=== PATIENT | female | born 1985 | race Caucasian/White ===

== ENCOUNTER 2020-04-12 12:29 | Emergency (ER) | payer MEDICAID, SELFPAY ==
[2020-04-12 12:48] VITALS: BP 126/80; PULSE 91; TEMP 36.3; O2SAT 98
[2020-04-12 13:15] LABS: Bilirubin Negative (Negative); Blood Negative (Negative); Clarity Clear (Clear); Glucose Negative (Negative); Ketones Negative (Negative); Leukocyte Esterase Negative (Negative); Nitrite Negative (Negative); Urobilinogen 0.2 EU/dL (Up TO 0.2)
--- NOTE | 2020-04-12 13:15 | DI.CT_ITS ---
EXAM: CT HEAD WO CLINICAL HISTORY: BILLINGS. TECHNIQUE: Imaging Protocol: Axial computed tomography images with coronal and sagittal reformatted images were created and reviewed COMPARISON: No exams were available for comparison FINDINGS: Ventricles and Extra axial spaces: Normal in size and morphology for the patient's age. Hemorrhage: None. Cerebral parenchyma: Normal. Midline shift: None. Brainstem/Cerebellum: Normal. Calvarium: Normal. Visualized Paranasal sinuses/Mastoids: Clear. Soft Tissues: Unremarkable. IMPRESSION: No acute intracranial process. Results of this exam have been verbally communicated with provider. RADIATION DOSE DELIVERED: Total DLP DATA REPOSITORY: All CT scans at this facility are submitted to the National Radiology Data Registry (NRDR) Dose Index Registry (DIR) with the [employer] ([employer]). RADIATION OPTIMIZATION: All CT scans at this facility use at least one of these dose optimization te chniques: automated exposure control; mA and/or kV adjustment per patient size (includes targeted exa ms where dose is matched to clinical indication); or iterative reconstruction.
[2020-04-12] MEDS: Normal Saline 1,000 ML 1000 ML IV (13:26)
[2020-04-12] MEDS: Normal Saline Flush 10 ML SYR IVP ×2 (13:26→15:05)
[2020-04-12] MEDS: Ondansetron 4 MG/2 ML VIAL IVP (13:26)
[2020-04-12 13:33] LABS: Abs Immature Grans 0.01 10^3/uL (0.0-0.06); Absolute Basophil Count 0.03 10^3/uL (0.0-0.2); Absolute Eosinophil Count 0.07 10^3/uL (0.0-0.7); Absolute Lymphocyte Count 1.53 10^3/uL (1.2-3.4); Absolute Monocyte Count 0.48 10^3/uL (0.1-0.8); Absolute Neutrophil Count 4.12 10^3/uL (1.2-6.7); Basophils % 0.5; Eosinophils % 1.1; HCT 41.9 % (36.0-46.0); HGB 14.1 g/dL (11.2-15.7); Immature Grans % 0.2; Lymphocytes % 24.5; MCH 32.3 pg (27.0-33.0); MCHC 33.7 % (32.0-36.0); MCV 95.9 fL (80-95); Monocytes % 7.7; Nucleated RBC 0 %; Platelet Count 264 10^3/uL (130-400); RBC 4.37 10^6/uL (3.93-5.22); WBC 6.24 10^3/uL (4.4-10.8)
[2020-04-12 13:46] LABS: ALT 22 U/L (14-59); AST 16 U/L (15-37); Albumin 4.7 g/dL (3.4-5.0); Alkaline Phosphatase 63 U/L (46-116); BUN 6 mg/dL (7-18); Bilirubin, Total 0.5 mg/dL (0.2-1.0); CREATININE 0.8 mg/dL (0.55-1.02); Calcium 9.5 mg/dL (8.5-10.1); Chloride 103 mmol/L (98-107); Glucose 94 mg/dL (74-106); Potassium 3.9 mmol/L (3.5-5.1); Sodium 139 mmol/L (136-145); Total Protein 8.7 g/dL (6.4-8.2)
[2020-04-12] MEDS: Ketorolac 15 MG/ML VIAL IVP (15:04)
[2020-04-12 15:15] LABS: TSH (W/Ref FT4) 4.77 uIU/mL (0.36-3.74)
[2020-04-12] MEDS: Cyclobenzaprine 10 MG TAB PO (15:28)
[2020-04-12 15:35] LABS: FREE T4 1.26 ng/dL (0.76-1.46)
[2020-04-12 15:41] VITALS: BP 113/55; PULSE 67; RESP 20; TEMP 37.1; O2SAT 100
[2020-04-12 16:03] VITALS: BP 110/60; PULSE 70; RESP 16; TEMP 37.2; O2SAT 97
--- NOTE | 2020-04-13 09:10 | ED.GENADUL_ITS ---
Discharge Plan Disposition Patient Disposition: HOME Condition: Stable Discharge Details Clinical Impression: Left-sided headache, Anxiety about health Primary Care Provider: None,None ED Provider: Shandra Calderon Home Meds and New Rx's Prescriptions: New levothyroxine 75 mcg tablet 75 mcg PO DAILY Qty: 30 RF: 0 cyclobenzaprine 10 mg tablet 10 mg PO TID PRN (Reason: muscle spasm) Qty: 10 RF: 0 No Action levothyroxine [Synthroid] 75 mcg Tablet 75 mcg PO DAILY RF: 0 Discharge Instructions Instructions: Levothyroxine (By mouth), Acute Headache (ED), Anxiety (ED) Additional Instructions: Follow up with primary care provider in 3-5 days. Return to ED sooner if any worsening or concerns. Increase oral fluids. Please take Tylenol or Ibuprofen with food every 4-6 hours as needed for pain and swelling. Try massage, we will place you on a care management list to get established with a primary care provider. Discharge Data Discharge Date/Time-TO BE ENTERED AT DEPARTURE: 04/12/20 16:11 Medical Decision Making 34-year-old female presents to the ED with chief complaint of left-sided temporal headache for the last 4 days. She describes this as sharp, aching and intermittent. Associated with nausea and vomiting today, she states that it gets really worse in the mornings. She has no past medical history of migraines or headaches. She denies any recent trauma or head injuries. She describes being very anxious for Covid she has not taken her levothyroxine for the last 2 months due to recent move from [place], quarantining, and delay in establishing PCP. She denies any fever, she does have left-sided paraspinous muscle pain. 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 She is a non-smoker, she has been taking Tylenol and ibuprofen on and off for the last 4 days with little to no relief. CT head without contrast ordered to rule out intracranial abnormality, labs are largely within normal limits, TSH letter added onto labs due to patient's not taking her levothyroxine and Martine's disorder, urinalysis ordered to rule out and/or UTI. TSH is 4.77 Free T4 is 1.26. EXAM: CT HEAD WO CLINICAL HISTORY: BILLINGS. TECHNIQUE: Imaging Protocol: Axial computed tomography images with coronal and sagittal reformatted images were created and reviewed COMPARISON: No exams were available for comparison FINDINGS: Ventricles and Extra axial spaces: Normal in size and morphology for the patient's age. Hemorrhage: None. Cerebral parenchyma: Normal. Midline shift: None. Brainstem/Cerebellum: Normal. Calvarium: Normal. Visualized Paranasal sinuses/Mastoids: Clear. Soft Tissues: Unremarkable. IMPRESSION: No acute intracranial process. Results of this exam have been verbally communicated with provider. Patient prescribed her levothyroxine 75 mcg, patient was given Flexeril which seems to have her symptoms, prescription given for Flexeril as well. Discussed alternating ice and heat and massage placed on care management list follow-up with PCP and discussed with patient for strict return instructions including increased fever, increasing headache, weakness dizziness, blurry vision. Patient verbalized understanding. She does appear more comfortable prior to discharge discussed alternating ice and heat massage. HPI General Mode of arrival: ambulatory . Date/Time Provider Initiated Documentation: 04/12/20 13:19 . Limitations to Documentation: no limitations . Information obtained by: patient . HPI Narrative: 34-year-old female presents to the ED with chief complaint of left-sided temporal headache for the last 4 days. She describes this as sharp, aching and intermittent. Associated with nausea and vomiting today, she states that it gets really worse in the mornings. She has no past medical history of migraines or headaches. She denies any recent trauma or head injuries. She describes being very anxious for Covid she has not taken her levothyroxine for the last 2 months due to recent move from [place], quarantining, and delay in establishing PCP. She denies any fever, she does have left-sided paraspinous muscle pain. 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 She is a non- smoker, she has been taking Tylenol and ibuprofen on and off for the last 4 days with little to no relief. Related Data Home Medications Medication Instructions Recorded Confirmed cyclobenzaprine 10 mg PO TID PRN #10 tab 04/12/20 levothyroxine 75 mcg PO DAILY #30 tab 04/12/20 levothyroxine [Synthroid] 75 mcg PO DAILY 04/12/20 04/12/20 Previous Rx's Medication Instructions Recorded cyclobenzaprine 10 mg PO TID PRN #10 tab 04/12/20 levothyroxine 75 mcg PO DAILY #30 tab 04/12/20 Allergies Allergy/AdvReac Type Severity Reaction Status Date / Time Penicillins Allergy Unverified 04/12/20 12:56 diphenhydramine AdvReac Unverified 04/12/20 12:56 [From Benadryl] General Stated Complaint: Headache DANNA: 2 Review of Systems Narrative: Constitutional: Negative for weight loss, alert and oriented, well g roomed, very thin body habitus, appears anxious. HEENT: Denies trauma, blurry vision, nasal discharge, sore throat, trouble swallowing. Chest: Denies chest pain, palpitations, irregular rhythm, hypertension. Respiratory: Denies Shortness of breath, cough, hemoptysis. GI: Denies abdominal pain, nausea, vomiting, diarrhea, constipation. : Denies dysuria, hematuria, flank pain, rectal bleeding. Neuro: Denies dizziness, blurry vision, weakness, syncope, headache or facial numbness. Hematologic: Denies easy bruising, intolerance to heat or cold, hair loss. [facility] Social History Smoking/Tobacco Use Status: Never Smoking risk assessment performed?: Yes Alcohol Intake: never Drug use: Never Substance use type: does not use Do you feel safe at home: Yes Do you feel safe in your relationship?: Yes Exam Narrative Exam Narrative: Constitutional: Alert and oriented x3. Appears stated age. Normal body habitus. Head: Normocephalic, no trauma. Eyes: Pupils PERRLA, Red reflex noted, EOM's intact. Eyelids symmetrical without lesions, discharge, or swelling. ENT: Bilateral TM's WNL, External ear normal to inspection, no mastoid TTP, swelling, or erythema, Nasal turbinates WNL, no nasal discharge. Normal dentition, Posterior pharynx WNL, no exudate. Chest: RRR, Normal S1, S2, distal pulses intact. Resp: Lungs clear to auscultation bilaterally, no wheezes, rales, or rhonchi. Musculoskeletal: Normal gait, 5/5 strength to all four extremities. Skin: No suspicious rashes or lesions. Capillary refill less than 2 sec. Neurologic: Cranial nerves II-XII intact. Alert and oriented x 3. DTR's intact. Hematologic/Lymphatic: No ecchymosis, no lymphadenopathy. Course Vital Signs Vital signs: Vital Signs Temperature 36.3 C L 04/12/20 12:48 Pulse 91 H 04/12/20 12:48 Blood Pressure 126/80 04/12/20 12:48 Pulse Oximetry 98 04/12/20 12:48 Temperature 37.2 C 04/12/20 16:03 Temperature Source Temporal Artery Scan 04/12/20 15:41 Pulse 70 04/12/20 16:03 Respiratory Rate 16 04/12/20 16:03 Respiratory Effort Non-Labored 04/12/20 12:54 Blood Pressure 110/60 04/12/20 16:03 Blood Pressure Position Sitting 04/12/20 12:48 Pulse Oximetry 97 04/12/20 16:03 Oxygen Delivery Method Room Air 04/12/20 15:41 Oxygen Flow Rate 0 04/12/20 15:41 Pain Level 2 04/12/20 16:03 Lab/Test Results Lab/Test Results: Laboratory Tests Range/Units 04/12/20 04/12/20 04/12/20 13:05 13:10 13:10 WBC (4.4-10.8) 10^3/uL 6.24 RBC (3.93-5.22) 10^6/uL 4.37 Hgb (11.2-15.7) g/dL 14.1 Hct (36.0-46.0) % 41.9 MCV (80-95) fL 95.9 H MCH (27.0-33.0) pg 32.3 MCHC (32.0-36.0) % 33.7 RDW (11.7-14.6) % 12.0 Plt Count (130-400) 10^3/uL 264 MPV (8.0-11.0) fL 11.0 Immature Gran % 0.2 Neutrophils % 66.0 Lymphocytes % 24.5 Monocytes % 7.7 Eosinophils % 1.1 Basophils % 0.5 Nucleated RBC % % 0 Absolute Neutrophils (1.2-6.7) 10^3/uL 4.12 Absolute Lymphocytes (1.2-3.4) 10^3/uL 1.53 Absolute Monocytes (0.1-0.8) 10^3/uL 0.48 Absolute Eosinophils (0.0-0.7) 10^3/uL 0.07 Absolute Basophils (0.0-0.2) 10^3/uL 0.03 Sodium (136-145) mmol/L 139 Potassium (3.5-5.1) mmol/L 3.9 Chloride (98-107) mmol/L 103 Carbon Dioxide (21.0-32.0) mmol/L 27.0 Anion Gap (3-11) mmol/L 9.0 BUN (7-18) mg/dL 6 L Creatinine (0.55-1.02) mg/dL 0.8 Estimated GFR/1.73 m2 (mL/min/1.73m2) >= 60.00 Glucose (74-106) mg/dL 94 Calcium (8.5-10.1) mg/dL 9.5 Total Bilirubin (0.2-1.0) mg/dL 0.5 AST (15-37) U/L 16 ALT (14-59) U/L 22 Alkaline Phosphatase (46-116) U/L 63 Total Protein (6.4-8.2) g/dL 8.7 H Albumin (3.4-5.0) g/dL 4.7 TSH (0.36-3.74) uIU/mL Free T4 (0.76-1.46) ng/dL Urine Color (Yellow) Yellow Urine Clarity (Clear) Clear Urine pH (5-8) 7.0 Ur Specific [place] (1.005-1.025) 1.010 Urine Protein (Negative) mg/dL Negative Urine Ketones (Negative) mg/dL Negative Urine Blood (Negative) Negative Urine Nitrite (Negative) Negative Urine Bilirubin (Negative) Negative Urine Urobilinogen (Up TO 0.2) EU/dL 0.2 Ur Leukocyte Esterase (Negative) Negative Urine Glucose (Negative) mg/dL Negative Range/Units 04/12/20 13:10 WBC (4.4-10.8) 10^3/uL RBC (3.93-5.22) 10^6/uL Hgb (11.2-15.7) g/dL Hct (36.0-46.0) % MCV (80-95) fL MCH (27.0-33.0) pg MCHC (32.0-36.0) % RDW (11.7-14.6) % Plt Count (130-400) 10^3/uL MPV (8.0-11.0) fL Immature Gran % Neutrophils % Lymphocytes % Monocytes % Eosinophils % Basophils % Nucleated RBC % % Absolute Neutrophils (1.2-6.7) 10^3/uL Absolute Lymphocytes (1.2-3.4) 10^3/uL Absolute Monocytes (0.1-0.8) 10^3/uL Absolute Eosinophils (0.0-0.7) 10^3/uL Absolute Basophils (0.0-0.2) 10^3/uL Sodium (136-145) mmol/L Potassium (3.5-5.1) mmol/L Chloride (98-107) mmol/L Carbon Dioxide (21.0-32.0) mmol/L Anion Gap (3-11) mmol/L BUN (7-18) mg/dL Creatinine (0.55-1.02) mg/dL Estimated GFR/1.73 m2 (mL/min/1.73m2) Glucose (74-106) mg/dL Calcium (8.5-10.1) mg/dL Total Bilirubin (0.2-1.0) mg/dL AST (15-37) U/L ALT (14-59) U/L Alkaline Phosphatase (46-116) U/L Total Protein (6.4-8.2) g/dL Albumin (3.4-5.0) g/dL TSH (0.36-3.74) uIU/mL 4.77 H Free T4 (0.76-1.46) ng/dL 1.26 Urine Color (Yellow) Urine Clarity (Clear) Urine pH (5-8) Ur Specific [place] (1.005-1.025) Urine Protein (Negative) mg/dL Urine Ketones (Negative) mg/dL Urine Blood (Negative) Urine Nitrite (Negative) Urine Bilirubin (Negative) Urine Urobilinogen (Up TO 0.2) EU/dL Ur Leukocyte Esterase (Negative) Urine Glucose (Negative) mg/dL POC- Test(urine) Negative
== END 2020-04-12 16:11 | disposition home or self-care (01) ==
PROVIDERS: Emergency Provider Registered Nurse Emergency
DX: F41.8 Other specified anxiety disorders (principal); R51.9 Headache, unspecified; R11.2 Nausea with vomiting, unspecified; R94.6 Abnormal results of thyroid function studies; T38.1X6A Underdosing of thyroid hormones and substitutes, initial encounter; Z91.138 Patient's unintentional underdosing of medication regimen for other reason; E06.3 Autoimmune thyroiditis
CPT/HCPCS: 36415; 80053; 81025; 96361; 96374; 96375; 99284; 70450; 81003; 84439; 84443; 85025; J1885; J2405

== ENCOUNTER 2020-05-30 09:55 | Outpatient (REF) | payer MEDICAID, SELFPAY ==
[2020-05-30 15:50] LABS: ALT 25 U/L (14-59); AST 19 U/L (15-37); Albumin 4.3 g/dL (3.4-5.0); Alkaline Phosphatase 61 U/L (46-116); Anion Gap 8.6 mmol/L (3-11); BUN 12 mg/dL (7-18); Bilirubin, Total 0.7 mg/dL (0.2-1.0); CO2 27.4 mmol/L (21.0-32.0); CREATININE 0.7 mg/dL (0.55-1.02); Calcium 9.1 mg/dL (8.5-10.1); Chloride 105 mmol/L (98-107); Glucose 89 mg/dL (74-106); Potassium 4.3 mmol/L (3.5-5.1); Sodium 141 mmol/L (136-145); TSH (W/Ref FT4) 4.68 uIU/mL (0.36-3.74); Total Protein 7.9 g/dL (6.4-8.2)
[2020-05-30 16:46] LABS: FREE T4 1.43 ng/dL (0.76-1.46)
== END 2020-05-30 09:56 | disposition home or self-care (01) ==
LOC: NCHCN 09:55
PROVIDERS: Visit Provider Nurse Practitioner
DX: F41.8 Other specified anxiety disorders (principal); E03.9 Hypothyroidism, unspecified
CPT/HCPCS: 80053; 84439; 84443

== ENCOUNTER 2021-07-03 16:46 | Outpatient (REF) | payer MEDICAID, SELFPAY ==
[2021-07-03 14:14] LABS: ESR 2 mm/hr (0-20)
== END 2021-07-03 16:47 | disposition home or self-care (01) ==
LOC: NCHCN 16:46
PROVIDERS: Visit Provider Physician Assistant
DX: R51.9 Headache, unspecified (principal)
CPT/HCPCS: 85652

== ENCOUNTER 2021-11-22 11:30 | Emergency (ER) | payer MEDICAID, SELFPAY ==
--- NOTE | 2021-11-22 11:45 | RT.EKG_ITS ---
APPROVED REPORT Exam: Resting ECG Reason for Exam: Tachycardia Patient Location: E HR:90 bpm ECG Measurements Heart Rate 90 AXIS [place] 130 P 56 QRSd 87 QRS 70 QT 374 T -38 QTc 458 Conclusion Sinus rhythm...normal P axis, V-rate 60- 99
[2021-11-22 12:00] VITALS: BP 115/71; PULSE 90; RESP 32; TEMP 37.1; O2SAT 99
[2021-11-22 12:23] LABS: Abs Immature Grans 0.01 10^3/uL (0.0-0.06); Absolute Basophil Count 0.05 10^3/uL (0.0-0.2); Absolute Eosinophil Count 0.08 10^3/uL (0.0-0.7); Absolute Lymphocyte Count 1.47 10^3/uL (1.2-3.4); Absolute Monocyte Count 0.48 10^3/uL (0.1-0.8); Absolute Neutrophil Count 3.36 10^3/uL (1.2-6.7); Basophils % 0.9; Eosinophils % 1.5; HCT 36.8 % (36.0-46.0); HGB 12.2 g/dL (11.2-15.7); Immature Grans % 0.2; MCH 31.8 pg (27.0-33.0); MCHC 33.2 % (32.0-36.0); MCV 96 fL (80-95); MPV 10.2 fL (8.0-11.0); Monocytes % 8.8; Neutrophils % 61.6; Platelet Count 272 10^3/uL (130-400); RBC 3.84 10^6/uL (3.93-5.22); RDW 12.2 % (11.7-14.6); RDW-SD 42.9 fL; WBC 5.45 10^3/uL (4.4-10.8)
[2021-11-22 12:47] LABS: ALT 20 U/L (14-59); AST 21 U/L (15-37); Albumin 4.2 g/dL (3.4-5.0); Alkaline Phosphatase 65 U/L (46-116); Anion Gap 10.7 mmol/L (3-11); BUN 9 mg/dL (7-18); Bilirubin, Total 0.7 mg/dL (0.2-1.0); CO2 24.3 mmol/L (21.0-32.0); CREATININE 0.9 mg/dL (0.55-1.02); Chloride 104 mmol/L (98-107); Estimated GFR 84.44 (mL/min/1.73m2); Glucose 90 mg/dL (74-106); Magnesium 1.8 mg/dL (1.8-2.4); Potassium 3.7 mmol/L (3.5-5.1); Sodium 139 mmol/L (136-145); TSH (W/Ref FT4) 5.61 uIU/mL (0.36-3.74); Total Protein 8.1 g/dL (6.4-8.2); Troponin I < 50 ng/L (<or=60)
[2021-11-22 13:06] LABS: FREE T4 1.27 ng/dL (0.76-1.46)
[2021-11-22] MEDS: LORazepam 20 MG/10 ML VIAL IVP (13:09)
[2021-11-22] MEDS: Normal Saline 1,000 ML 1000 ML IV (13:09)
--- NOTE | 2021-11-22 13:24 | ED.GENADUL_ITS ---
Discharge Plan Disposition Patient Disposition: HOME Condition: Improving Discharge Details Clinical Impression: Adverse drug reaction Primary Care Provider: None,None ED Provider: Calderon Flores Home Meds and New Rx's Prescriptions: Continued cyclobenzaprine 10 mg tablet 10 mg PO TID PRN (Reason: muscle spasm) Qty: 10 0RF Held levothyroxine [Synthroid] 75 mcg Tablet 75 mcg PO DAILY Hold Instructions: Until you follow-up with your primary care provider levothyroxine 75 mcg tablet 75 mcg PO DAILY Qty: 30 0RF Hold Instructions: Until you follow-up with your primary care provider Discharge Instructions Additional Instructions: At this time please hold your levothyroxine as I feel this may be causing an adverse reaction. You will need to follow-up with your primary care provider for reassessment and may repeat labs before resuming any further thyroid meds. If you develop any new or significant worsening of symptoms feel free to return the emergency department Referrals: Primary Care Provider [Outside] - 1 week Discharge Data Discharge Date/Time-TO BE ENTERED AT DEPARTURE: 11/22/21 13:42 Medical Decision Making Patient presenting to the emergency department for chief complaint of adverse medication reaction. She states starting 1 week ago whenever she takes her thyroid medication within a couple hours she becomes shaky, rapid heart rate, and has had some diarrhea. Then when she skips her medication she does not have any symptoms. She has taken her meds for the past 2 days and today noted significant increase worsening of symptoms. Physical exam is unremarkable, no worrisome palpable thyroid nodules that I can appreciate, clear lung sounds, normal cardiac exam. Patient does appear slightly anxious. We will plan on checking labs, giving fluids, and antiemetics pending results Review of labs show an overall unremarkable CBC, CMP, negative troponin, EKG shows upper limits of normal sinus rhythm but otherwise nondiagnostic with no acute STEMI noted. TSH is elevated at 5.61 but free T4 is 1.27. Given that patient has symptoms whenever she takes her medication I recommended that she holds her medication and follow-up with primary care provider in the next week to further discuss this. Patient does state that she was only started on the medication when she was which was over 4 years ago. Patient does state overall improvement of symptoms and so I do feel that discharge disposition is safe and see no evidence of endocrine emergency. After discussion of diagnosis and plan of care patient has no further needs, questions, or concerns and states clear understanding to return to the emergency department for any worsening symptoms. This documentation was generated using [employer] dictation system, please disregard any oddities of phrase or misspellings. Lab Data Lab results reviewed: Yes I reviewed the patient's lab results. HPI General Mode of arrival: ambulatory . Date/Time Provider Initiated Documentation: 11/22/21 11:36 . Limitations to Documentation: no limitations . Information obtained by: patient and RN notes reviewed . History of Present Illness 36 year old F presents to the emergency department with the chief complaint of Medication reaction, described as moderate, Quality is described as other (Denies pain), Patient started experiencing this week(s) (1) and it has been intermittent. No relieving factors improve symptom(s), Medication worsens symptoms . Patient notes malaise; denies fever/chills. Patient did receive the following treatments prior to arrival, none Related Data Home Medications Medication Instructions Recorded Confirmed cyclobenzaprine 10 mg tablet 10 mg PO TID PRN muscle spasm #10 04/12/20 tabs levothyroxine 75 mcg tablet 75 mcg PO DAILY #30 tabs 04/12/20 levothyroxine 75 mcg tablet 75 mcg PO DAILY 04/12/20 04/12/20 (Synthroid) Previous Rx's Medication Instructions Recorded cyclobenzaprine 10 mg tablet 10 mg PO TID PRN muscle spasm #10 04/12/20 tabs levothyroxine 75 mcg tablet 75 mcg PO DAILY #30 tabs 04/12/20 Allergies Allergy/AdvReac Type Severity Reaction Status Date / Time Penicillins Allergy Unverified 04/12/20 12:56 diphenhydramine AdvReac Unverified 04/12/20 12:56 [From Benadryl] General Stated Complaint: GenMedical DANNA: 3 Review of Systems Constitutional Constitutional: Denies chills, Denies fever(s), Reports headache(s) and Reports malaise Eyes Eyes: Denies change in vision ENT Ears, Nose, Mouth, and Throat: Reports headache(s), Denies lip swelling, Denies neck pain, Denies throat swelling and Denies tongue swelling Cardiovascular Cardiovascular: Reports chest pain, Denies syncope, Reports palpitations and Denies dyspnea Respiratory Respiratory: Denies dyspnea Gastrointestinal Gastrointestinal: Denies abdominal pain, Reports diarrhea, Denies nausea and Denies vomiting Musculoskeletal Musculoskeletal: Reports muscle cramps, Denies neck pain, Denies numbness and Denies tingling Integumentary/Breasts Skin/Breast: Denies rash and Denies unusual bruising Neurologic Neurologic: Denies confusion, Denies syncope, Reports headache(s), Denies numbness and Denies tingling Psychiatric Psychiatric: Reports anxiety and Denies confusion Endocrine Endocrine: Reports palpitations Hematologic/Lymphatic Hematologic/Lymphatic: Denies easy bruising Allergic/Immunologic Allergic/Immunologic: Denies lip swelling, Denies throat swelling and Denies tongue swelling PFSH All Active Problems (Updated 11/23/21 @ 09:58 by Calderon Flores NP) Panic attacks (Acute) Hypothyroidism (Chronic) Adverse drug reaction (Acute) Social History Smoking/Tobacco Use Status: Never Smoking risk assessment performed?: Yes Alcohol Intake: never Drug use: Never Substance use type: does not use Do you feel safe at home: Yes Do you feel safe in your relationship?: Yes Exam Const General: cooperative, healthy appearing, comfortable, no acute distress, not diaphoretic and not ill appearing Nutritional Appearance: average body habitus Orientation: alert, awake and oriented x3 Limitations: mental status not altered Neck Neck: normal visual inspection, full ROM, trachea midline, supple and no anterior neck swelling Thyroid: thyroid normal Carotids: normal carotid upstroke and no bruits Chest Chest: normal inspection of the chest Resp Effort & Inspection: normal respiratory effort and able to speak in complete sentences Auscultation: clear to auscultation bilaterally Cardio Jugular venous pressure: no JVD Palpation: normal PMI Rate: regular rate Rhythm: regular rhythm Heart Sounds: S1 normal, S2 normal, no click, no gallops, no murmurs and no rubs Bruits: no abdominal aortic bruits and no carotid bruits Pulses: radial pulses present bilaterally 2+ Skin General skin exam: no rashes or lesions noted Neuro General: patient alert, patient awake, patient oriented x3, tone normal and moves all extremities Course Vital Signs Vital signs: Vital Signs Temperature 37.1 C 11/22/21 12:00 Pulse 90 11/22/21 12:00 Respiratory Rate 32 H 11/22/21 12:00 Blood Pressure 115/71 11/22/21 12:00 Pulse Oximetry 99 11/22/21 12:00 Temperature 37.1 C 11/22/21 12:00 Temperature Source Temporal Artery Scan 11/22/21 12:00 Pulse 90 11/22/21 12:00 Respiratory Rate 32 H 11/22/21 12:00 Blood Pressure 115/71 11/22/21 12:00 Blood Pressure Position Sitting 11/22/21 12:00 Pulse Oximetry 99 11/22/21 12:00 Oxygen Delivery Method Room Air 11/22/21 12:00 Oxygen Flow Rate 0 11/22/21 12:00 Pain Level 0 11/22/21 12:00 Lab/Test Results Lab/Test Results: Laboratory Tests Range/Units 11/22/21 11/22/21 12:20 12:20 WBC (4.4-10.8) 10^3/uL 5.45 RBC (3.93-5.22) 10^6/uL 3.84 L Hgb (11.2-15.7) g/dL 12.2 Hct (36.0-46.0) % 36.8 MCV (80-95) fL 96 H MCH (27.0-33.0) pg 31.8 MCHC (32.0-36.0) % 33.2 RDW (11.7-14.6) % 12.2 Plt Count (130-400) 10^3/uL 272 MPV (8.0-11.0) fL 10.2 Immature Gran % 0.2 Neutrophils % 61.6 Lymphocytes % 27.0 Monocytes % 8.8 Eosinophils % 1.5 Basophils % 0.9 Nucleated RBC % (0.0-0.3) % 0.0 Absolute Neutrophils (1.2-6.7) 10^3/uL 3.36 Absolute Lymphocytes (1.2-3.4) 10^3/uL 1.47 Absolute Monocytes (0.1-0.8) 10^3/uL 0.48 Absolute Eosinophils (0.0-0.7) 10^3/uL 0.08 Absolute Basophils (0.0-0.2) 10^3/uL 0.05 Sodium (136-145) mmol/L 139 Potassium (3.5-5.1) mmol/L 3.7 Chloride (98-107) mmol/L 104 Carbon Dioxide (21.0-32.0) mmol/L 24.3 Anion Gap (3-11) mmol/L 10.7 BUN (7-18) mg/dL 9 Creatinine (0.55-1.02) mg/dL 0.9 Est GFR (CKD-EPI 2020) (mL/min/1.73m2) 84.44 Glucose (74-106) mg/dL 90 Calcium (8.5-10.1) mg/dL 9.0 Magnesium (1.8-2.4) mg/dL 1.8 Total Bilirubin (0.2-1.0) mg/dL 0.7 AST (15-37) U/L 21 ALT (14-59) U/L 20 Alkaline Phosphatase (46-116) U/L 65 Troponin I (<or=60) ng/L < 50 Total Protein (6.4-8.2) g/dL 8.1 Albumin (3.4-5.0) g/dL 4.2 TSH (0.36-3.74) uIU/mL 5.61 H Free T4 (0.76-1.46) ng/dL 1.27
== END 2021-11-22 13:42 | disposition home or self-care (01) ==
PROVIDERS: Emergency Provider Nurse Practitioner Family; PCP Nurse Practitioner Family
DX: R00.0 Tachycardia, unspecified (principal); T38.1X5A Adverse effect of thyroid hormones and substitutes, initial encounter; R19.7 Diarrhea, unspecified; E03.9 Hypothyroidism, unspecified
CPT/HCPCS: 80053; 93005; 96361; 96372; 99284; 83735; 84439; 84443; 84484; 85025; 93010; J3490

== ENCOUNTER 2022-01-19 15:02 | Outpatient (REF) | payer MEDICAID, SELFPAY ==
[2022-01-19 15:44] LABS: TSH (W/Ref FT4) 6.33 uIU/mL (0.36-3.74)
[2022-01-19 16:01] LABS: FREE T4 1.05 ng/dL (0.76-1.46)
== END 2022-01-19 15:03 | disposition home or self-care (01) ==
LOC: NCHCN 15:02
PROVIDERS: PCP Nurse Practitioner Family; Visit Provider Nurse Practitioner Family
DX: E03.9 Hypothyroidism, unspecified (principal)
CPT/HCPCS: 84439; 84443

== ENCOUNTER 2022-07-05 12:28 | Outpatient (REF) | payer MEDICAID, SELFPAY ==
[2022-07-05 17:01] LABS: TSH (W/Ref FT4) 10.41 uIU/mL (0.36-3.74)
[2022-07-05 18:23] LABS: FREE T4 0.96 ng/dL (0.76-1.46)
== END 2022-07-05 12:29 | disposition home or self-care (01) ==
LOC: NCHCN 12:28
PROVIDERS: PCP Nurse Practitioner Family; Visit Provider Nurse Practitioner Family
DX: E03.9 Hypothyroidism, unspecified (principal)
CPT/HCPCS: 84439; 84443

== ENCOUNTER 2022-08-05 00:27 | Emergency (ER) | payer MEDICAID, SELFPAY ==
[2022-08-05] VITALS (7 sets, daily range): BP systolic 105–113; BP diastolic 62–65; PULSE 66–76; RESP 16–18; O2SAT 97–100
--- NOTE | 2022-08-05 00:41 | ED.GENADUL_ITS ---
Discharge Plan Disposition Patient Disposition: Home Condition: Stable Discharge Details Clinical Impression: Nausea & vomiting Primary Care Provider: Daja Arciniega ED Provider: Ramiro Horne Home Meds and New Rx's Prescriptions: New ondansetron 4 mg tablet,disintegrating 4 mg PO Q8H PRN (Reason: nausea and vomiting) Qty: 30 0RF Discharge Instructions Instructions: Acute Nausea and Vomiting (ED) Additional Instructions: it is likely you have a food related illness that will improve over the course of the day if not improving this week follow up with your primary care provider if you feel more ill, have severe abdominal pain or new symptoms such as chest pain or dyspnea return to the emergency department Medical Decision Making 36 yo female who denies chronic medical problems comes in with cc of n/v. She states she was in her usual state of health throughout the day, went out for dinner and ate tuna. Shortly after getting home she started to have nausea and then started to vomit multiple times. She denies abdominal pain, chest pain, dyspnea, fevers, chills. She drinks socially, denies drug use. She arrives hemodynamically stable, speaking clearly caox4. She has clear lungs, no murmurs, soft nontender abdomen. Given the history of eating fish and then having the profuse n/v suspect food related illness, lack of abdominal tenderness makes surgical pathology such as sbo unlikely. Will proceed with iv fluids, zofran, check basic labs including cbc, cmp, lipase and reassess. Do not feel imaging indicated given reassuring abdominal exam. pt stable, still has nausea but states has improved. Labs show wbc of 15 likely reactive, still has no abdominal pain and no tenderness on exam, suspect food related illness, stable for d/c, advised to f/u with pcp, return precautions given Differential Diagnosis Differential Diagnosis: food illness, gastroenteritis Lab Data Lab results reviewed: Yes I reviewed the patient's lab results. HPI General Date/Time Provider Initiated Documentation: 08/05/22 00:27 . Limitations to Documentation: no limitations . Information obtained by: patient . History of Present Illness 36 year old F presents to the emergency department with the chief complaint of n/v, Patient started experiencing this hour(s) (3) and it has been intermittent. No relieving factors improve symptom(s), No exacerbating factors reported . Patient notes no other symptoms.. Patient did receive the following treatments prior to arrival, none Related Data Home Medications Medication Instructions Recorded Confirmed ondansetron 4 mg disintegrating 4 mg PO Q8H PRN nausea and 08/05/22 tablet vomiting #30 tabs Previous Rx's Medication Instructions Recorded ondansetron 4 mg disintegrating 4 mg PO Q8H PRN nausea and 08/05/22 tablet vomiting #30 tabs Allergies Allergy/AdvReac Type Severity Reaction Status Date / Time Penicillins Allergy Unverified 08/05/22 00:36 diphenhydramine AdvReac Unverified 08/05/22 00:36 [From Benadryl] General Stated Complaint: Nausea/Vomit/Diar DANNA: 3 Review of Systems All systems reviewed & are unremarkable except as noted in HPI and below Constitutional Constitutional: Denies chills and Denies fever(s) Cardiovascular Cardiovascular: Denies chest pain and Denies dyspnea Respiratory Respiratory: Denies cough and Denies dyspnea Gastrointestinal Gastrointestinal: Denies abdominal pain, Reports nausea and Reports vomiting Genitourinary Genitourinary: Denies dysuria Musculoskeletal Musculoskeletal: Denies joint swelling Integumentary/Breasts Skin/Breast: Denies rash PFSH All Active Problems (Updated 08/05/22 @ 01:41 by Ramiro Horne MD) Nausea & vomiting (Acute) Panic attacks (Acute) Hypothyroidism (Chronic) Social History Smoking/Tobacco Use Status: Never Smoking risk assessment performed?: Yes Alcohol Intake: never Drug use: Never Substance use type: marijuana Do you feel safe at home: Yes Do you feel safe in your relationship?: Yes Exam Const General: no acute distress Orientation: alert HENPA Head: normal to inspection Ears: external ears normal General nose exam: external nose normal Mouth: moist mucous membranes Eyes General: appearance normal, both eyes and all related structures Neck Neck: normal visual inspection Resp Effort & Inspection: normal respiratory effort and able to speak in complete sentences Cardio Rate: regular rate GI Palpation: soft and nontender Skin General skin exam: no rashes or lesions noted Neuro General: patient alert and patient oriented x3 Extrem General: normal to inspection Psych Mental Status: mental status grossly normal Course Vital Signs Vital signs: Vital Signs Pulse 76 08/05/22 00:32 Respiratory Rate 16 08/05/22 00:32 Blood Pressure 113/65 08/05/22 00:32 Pulse Oximetry 97 08/05/22 00:32 Pulse 76 08/05/22 00:32 Respiratory Rate 16 08/05/22 00:32 Respiratory Effort Normal 08/05/22 00:32 Blood Pressure 113/65 08/05/22 00:32 Blood Pressure Position Supine 08/05/22 00:32 Pulse Oximetry 97 08/05/22 00:32 Oxygen Delivery Method Room Air 08/05/22 00:32 Oxygen Flow Rate 0 08/05/22 00:32 Pain Level 0 08/05/22 00:32
[2022-08-05] MEDS: Normal Saline 1,000 ML 1000 ML IV (00:50)
[2022-08-05] MEDS: Ondansetron 4 MG/2 ML VIAL IVP (01:00)
[2022-08-05 01:04] LABS: Abs Immature Grans 0.05 10^3/uL (0.0-0.06); Absolute Basophil Count 0.03 10^3/uL (0.0-0.2); Basophils % 0.2; Eosinophils % 1.2; HGB 12.5 g/dL (11.2-15.7); Immature Grans % 0.3; Lymphocytes % 10.2; MCH 31.9 pg (27.0-33.0); MCHC 33.8 % (32.0-36.0); MCV 94 fL (80-95); MPV 10.5 fL (8.0-11.0); Monocytes % 5.8; Neutrophils % 82.3; Platelet Count 263 10^3/uL (130-400); RBC 3.92 10^6/uL (3.93-5.22); RDW 12.6 % (11.7-14.6); RDW-SD 43.9 fL; WBC 15.22 10^3/uL (4.4-10.8)
[2022-08-05 01:05] LABS: Absolute Eosinophil Count 0.18 10^3/uL (0.0-0.7); Absolute Lymphocyte Count 1.55 10^3/uL (1.2-3.4); Absolute Monocyte Count 0.88 10^3/uL (0.1-0.8); Absolute Neutrophil Count 12.53 10^3/uL (1.2-6.7)
[2022-08-05 01:20] LABS: ALT 21 U/L (14-59); AST 27 U/L (15-37); Alkaline Phosphatase 55 U/L (46-116); Anion Gap 9.7 mmol/L (3-11); BUN 9 mg/dL (7-18); Bilirubin, Total 0.7 mg/dL (0.2-1.0); CO2 26.3 mmol/L (21.0-32.0); CREATININE 0.6 mg/dL (0.55-1.02); Calcium 8.4 mg/dL (8.5-10.1); Chloride 103 mmol/L (98-107); Estimated GFR 118.49 (mL/min/1.73m2); Glucose 89 mg/dL (74-106); Lipase 31 U/L (16-77); Magnesium 1.7 mg/dL (1.8-2.4); Potassium 3.9 mmol/L (3.5-5.1); Sodium 139 mmol/L (136-145); Total Protein 7.8 g/dL (6.4-8.2)
[2022-08-05 01:30] LABS: HCG Qual (Serum) Negative
== END 2022-08-05 01:51 | disposition home or self-care (01) ==
PROVIDERS: Emergency Provider Emergency Medicine; PCP Nurse Practitioner Family
DX: R11.2 Nausea with vomiting, unspecified (principal)
CPT/HCPCS: 36415; 80053; 83690; 96361; 96374; 99284; 83735; 84703; 85025; J2405

== ENCOUNTER 2022-09-14 17:22 | Outpatient (REF) | payer MEDICAID, SELFPAY | END 2022-09-14 17:23 | disposition home or self-care (01) | LOC: LBN 17:22 | PROVIDERS: PCP Nurse Practitioner Family; Visit Provider Physician Assistant Medical | DX: J02.9 Acute pharyngitis, unspecified (principal) | CPT/HCPCS: 87070 ==

== ENCOUNTER 2022-10-04 18:36 | Outpatient (REF) | payer MEDICAID, SELFPAY ==
[2022-10-04 16:32] LABS: HCT 38.7 % (36.0-46.0); HGB 12.8 g/dL (11.2-15.7); MCH 31.8 pg (27.0-33.0); MCHC 33.1 % (32.0-36.0); MCV 96 fL (80-95); MPV 10.8 fL (8.0-11.0); Platelet Count 332 10^3/uL (130-400); RBC 4.03 10^6/uL (3.93-5.22); RDW 12.7 % (11.7-14.6); RDW-SD 45.3 fL; WBC 6.52 10^3/uL (4.4-10.8)
[2022-10-04 17:10] LABS: Anion Gap 9.2 mmol/L (3-11); BUN 13 mg/dL (7-18); CO2 25.8 mmol/L (21.0-32.0); CREATININE 0.8 mg/dL (0.55-1.02); Chloride 104 mmol/L (98-107); Estimated GFR 96.66 (mL/min/1.73m2); Glucose 89 mg/dL (74-106); Potassium 4.3 mmol/L (3.5-5.1); Sodium 139 mmol/L (136-145); TSH (W/Ref FT4) 4.57 uIU/mL (0.36-3.74)
[2022-10-04 17:48] LABS: FREE T4 0.93 ng/dL (0.76-1.46)
[2022-10-04 18:30] LABS: Vitamin B12 381 pg/mL (193-986)
== END 2022-10-04 18:37 | disposition home or self-care (01) ==
LOC: NCHCN 18:36
PROVIDERS: PCP Nurse Practitioner Family; Visit Provider Nurse Practitioner Family
DX: E03.9 Hypothyroidism, unspecified (principal); N92.5 Other specified irregular menstruation; F41.8 Other specified anxiety disorders; F43.21 Adjustment disorder with depressed mood; Z79.899 Other long term (current) drug therapy
CPT/HCPCS: 80048; 85027; 82607; 84439; 84443

== ENCOUNTER 2023-04-30 15:19 | Outpatient (CLI) | payer MEDICAID, SELFPAY ==
[2023-04-30 15:15] LABS: Abs Immature Grans 0.04 10^3/uL (0.0-0.06); Absolute Basophil Count 0.05 10^3/uL (0.0-0.2); Absolute Eosinophil Count 0.11 10^3/uL (0.0-0.7); Absolute Lymphocyte Count 2.29 10^3/uL (1.2-3.4); Absolute Monocyte Count 0.65 10^3/uL (0.1-0.8); Absolute Neutrophil Count 6.43 10^3/uL (1.2-6.7); Basophils % 0.5; Eosinophils % 1.1; HCT 39.4 % (36.0-46.0); HGB 12.9 g/dL (11.2-15.7); Immature Grans % 0.4; Lymphocytes % 23.9; MCH 30.5 pg (27.0-33.0); MCHC 32.7 % (32.0-36.0); MCV 93 fL (80-95); MPV 9.6 fL (8.0-11.0); Monocytes % 6.8; Neutrophils % 67.3; Platelet Count 300 10^3/uL (130-400); RBC 4.23 10^6/uL (3.93-5.22); RDW 13.7 % (11.7-14.6); RDW-SD 46.7 fL; WBC 9.57 10^3/uL (4.4-10.8)
[2023-04-30 15:17] LABS: Bilirubin Negative (Negative); Blood Large (Negative); Clarity Clear (Clear); Glucose Negative (Negative); Ketones Negative (Negative); Leukocyte Esterase Negative (Negative); Nitrite Negative (Negative); Urobilinogen 0.2 mg/dL (Up to 0.2)
[2023-04-30 16:04] LABS: HCG Qual (Serum) Negative
[2023-04-30 16:32] LABS: ALT 20 U/L (14-59); AST 20 U/L (15-37); Albumin 4.4 g/dL (3.4-5.0); Alkaline Phosphatase 75 U/L (46-116); Amylase 75 U/L (25-115); Anion Gap 10.8 mmol/L (3-11); BUN 10 mg/dL (7-18); Bilirubin, Total 0.5 mg/dL (0.2-1.0); CO2 26.2 mmol/L (21.0-32.0); CREATININE 0.9 mg/dL (0.55-1.02); Calcium 9.1 mg/dL (8.5-10.1); Chloride 103 mmol/L (98-107); Estimated GFR 83.92 (mL/min/1.73m2); Glucose 82 mg/dL (74-106); Lipase 47 U/L (16-77); Magnesium 2.2 mg/dL (1.8-2.4); Potassium 3.4 mmol/L (3.5-5.1); Sodium 140 mmol/L (136-145); TSH (W/Ref FT4) 8.74 uIU/mL (0.36-3.74); Total Protein 8.5 g/dL (6.4-8.2)
[2023-04-30 16:58] LABS: FREE T4 1.06 ng/dL (0.76-1.46)
[2023-04-30 17:30] LABS: Vitamin D 25 Total 20.4 ng/mL (30-100)
[2023-04-30 17:50] LABS: Ferritin 39 ng/mL (8-252); Vitamin B12 439 pg/mL (193-986)
[2023-05-02 11:29] LABS: Zinc, S 78 mcg/dL (60-106)
[2023-05-10 10:12] LABS: Amphetamines Negative ng/mL (Cutoff: 20); Barbiturates Negative ng/mL (Cutoff: 50); Benzodiazepines Negative ng/mL (Cutoff: 50); Buprenorphine Negative ng/mL (Cutoff: 1); Methamphetamine Negative ng/mL (Cutoff: 20)
[2023-05-10 10:14] LABS: Cocaine Negative ng/mL (Cutoff: 20); Methadone Negative ng/mL (Cutoff: 25); Opiates Negative ng/mL (Cutoff: 20); Phencyclidine Negative ng/mL (Cutoff: 10)
[2023-05-10 10:37] LABS: 11-Nor-9-carboxy-THC,S/P 146 ng/mL
== END 2023-04-30 15:20 | disposition home or self-care (01) ==
LOC: LBO 15:19
PROVIDERS: PCP Nurse Practitioner Family; Visit Provider Nurse Practitioner Psychiatric/Mental Health
DX: F50.89 Other specified eating disorder (principal)
CPT/HCPCS: 36415; 80053; 80349; 82306; 83690; 84630; 80307; 81003; 82150; 82607; 82728; 83735; 84100; 84439; 84443; 84703; 85025

== ENCOUNTER 2023-07-04 14:43 | Outpatient (REF) | payer MEDICAID, SELFPAY ==
[2023-07-04 15:39] LABS: Abs Immature Grans 0.03 10^3/uL (0.0-0.06); Absolute Basophil Count 0.07 10^3/uL (0.0-0.2); Absolute Eosinophil Count 0.15 10^3/uL (0.0-0.7); Absolute Lymphocyte Count 1.94 10^3/uL (1.2-3.4); Absolute Monocyte Count 0.72 10^3/uL (0.1-0.8); Absolute Neutrophil Count 6.06 10^3/uL (1.2-6.7); Basophils % 0.8 %; Eosinophils % 1.7 %; HCT 38.5 % (36.0-46.0); HGB 12.8 g/dL (11.2-15.7); Immature Grans % 0.3 %; Lymphocytes % 21.6 %; MCH 31.6 pg (27.0-33.0); MCHC 33.2 % (32.0-36.0); MCV 95 fL (80-95); MPV 11.1 fL (8.0-11.0); Neutrophils % 67.6 %; Platelet Count 318 10^3/uL (130-400); RBC 4.05 10^6/uL (3.93-5.22); RDW 13.1 % (11.7-14.6); WBC 8.97 10^3/uL (4.4-10.8)
[2023-07-04 15:50] LABS: Iron 90 ug/dL (50-170); Total Iron Binding Capacity 314 ug/dL (250-450); Transferrin Sat 29 % (15-50)
[2023-07-04 16:15] LABS: ALT 29 U/L (14-59); AST 19 U/L (15-37); Albumin 4.2 g/dL (3.4-5.0); Alkaline Phosphatase 77 U/L (46-116); Anion Gap 10.1 mmol/L (3-11); BUN 12 mg/dL (7-18); Bilirubin, Total 0.5 mg/dL (0.2-1.0); CO2 25.9 mmol/L (21.0-32.0); CREATININE 0.7 mg/dL (0.55-1.02); Calcium 8.9 mg/dL (8.5-10.1); Chloride 104 mmol/L (98-107); Estimated GFR 113.46 (mL/min/1.73m2); Glucose 91 mg/dL (74-106); Potassium 4.3 mmol/L (3.5-5.1); Sodium 140 mmol/L (136-145); TSH (W/Ref FT4) 4.27 uIU/mL (0.36-3.74); Total Protein 7.7 g/dL (6.4-8.2)
[2023-07-04 16:33] LABS: FREE T4 1.05 ng/dL (0.76-1.46)
[2023-07-04 16:42] LABS: Vitamin D 25 Total 21.2 ng/mL (30-100)
[2023-07-04 17:37] LABS: Vitamin B12 431 pg/mL (193-986)
== END 2023-07-04 14:44 | disposition home or self-care (01) ==
LOC: NCHCN 14:43
PROVIDERS: Visit Provider Nurse Practitioner Family
DX: F50.00 Anorexia nervosa, unspecified (principal)
CPT/HCPCS: 80053; 82306; 82607; 83540; 83550; 84439; 84443; 85025

== ENCOUNTER 2023-07-11 01:23 | Outpatient (CLI) | payer MEDICAID, SELFPAY ==
--- NOTE | 2023-07-11 10:30 | W.NUTRFU ---
Date of service: 07/11/23 Time of Service: 09:00 Nutrition Note NOTE: Brianna comes in today with referral for support managing anorexia nervosa. She relays she goes to counseling 2x per week. She denies use of scale, and not specifically weight-oriented in her attempts to control/restrict her intake. Went through a relapse/deteriorated about a year ago and reports she removed dairy and meat from her diet. She reports being down to 103lbs this last summer and remembers her teeth hurting a lot. She currently eat everything except has extreme aversion to peanut butter and won't eat grilled cheese. She has made some recent progress with eating some routinely feared foods such as pulled pork (which she avoided for the last year). She considers 130-140lbs a good functional/healthy weight for her. Did not offer a weight today in this office but she does report 118pounds last week. She reports being fed up with the anorexia protocol which she referred to many times during the appointment - feeling like she is required to eat 6 times per day when she doesn't feel it is realistic and not at risk of re-feeding. I supported compromise and related that if it helps her eat more nutrient dense foods with energy, than eating 4 or 5 times a day can be just as beneficial, without the guilt, however stressed the need for some continued rebound weight in a healthy manner and eating more than 3 meals a day is going to be necessary with her reporting quick to fullness at many eating occasions. GAve some tips such as avoiding fluids at meals and eating protein, and kcal dense choices first. She does not eat sweets, but I supported the idea of a healthy added sugar intake and let her know 30grams of day is fine if she chooses some pleasure foods. We did gain a good rapport during the visit and I offered continued support, which helps along with the multidiciplinary care she is already receiving. She agreed and scheduled a follow up visit for August 07 at 9am She took my card to call/email with any questions or need for resources before the follow up. Time Spent in Nutritional Counseling and Treatment: 60 minutes
== END 2023-07-11 01:24 | disposition home or self-care (01) ==
LOC: DS 01:23
PROVIDERS: Visit Provider Dietitian, Registered
DX: F50.01 Anorexia nervosa, restricting type (principal); Z71.3 Dietary counseling and surveillance
CPT/HCPCS: 00123; 97802

== ENCOUNTER 2023-10-22 10:12 | Emergency (ER) | payer OTHER, MEDICAID, SELFPAY ==
[2023-10-22 10:19] VITALS: BP 111/64; PULSE 72; RESP 16; TEMP 36.6; O2SAT 100
--- NOTE | 2023-10-22 10:30 | DI.RAD_ITS ---
Exam(s) XR ANKLE RT COMPLETE XR FOOT RT COMPLETE EXAM: XR ANKLE RT COMPLETE CLINICAL HISTORY: R foot and ankle pain; twisting injury. TECHNIQUE: 2D digital imaging was performed. Three views. COMPARISON: CR XR FOOT RT COMPLETE from 10/22/2023 FINDINGS: BONES: Avulsion fragment from the dorsal aspect of the talus. No additional fractures are identified in the ankle or foot. No bony destructive lesion is seen. JOINTS: The ankle mortise is normally aligned. SOFT TISSUE: Swelling dorsal to the talus. IMPRESSION: Avulsion fracture at the dorsal aspect of the talus. DATA REPOSITORY: RADIATION DOSE DELIVERED:
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
[2023-10-22] MEDS: Acetaminophen 500 MG TAB 1000 MG PO (11:18)
[2023-10-22 11:45] VITALS: BP 111/64; PULSE 72; RESP 16; TEMP 36.6; O2SAT 100
== END 2023-10-22 11:56 | disposition home or self-care (01) ==
PROVIDERS: Emergency Provider Physician Assistant; PCP Physician Assistant
DX: S92.151A Displaced avulsion fracture (chip fracture) of right talus, initial encounter for closed fracture (principal); X58.XXXA Exposure to other specified factors, initial encounter
CPT/HCPCS: 29515; 99284; 73610; 73630; 99283

== ENCOUNTER 2024-09-27 16:57 | Emergency (ER) | payer MEDICAID, SELFPAY ==
[2024-09-27 17:01] VITALS: BP 99/64; PULSE 77; RESP 16; TEMP 36.9; O2SAT 98
[2024-09-27] MEDS: Normal Saline 1,000 ML 1000 ML IV (17:35)
--- NOTE | 2024-09-27 17:37 | W.ED.GENAD ---
Discharge Plan Disposition Patient Disposition: Home Condition: Stable Discharge Details Clinical Impression: Vaginal bleeding in Primary Care Provider: Jarad Riggs ED Provider: Elis Velásquez Home Meds and New Rx's Prescriptions: No Action Classic 28 mg iron- 800 mcg tablet 1 tab PO DAILY Discharge Instructions Instructions: Bleeding in Early (DC), Ectopic - Discharge instructions Additional Instructions: Follow-up with OB on Saturday at 10 AM as planned. Return immediately with any new or worsening symptoms. Referrals: [employer] [OTHER, [employer]] - 2 days Clinical Impression: Vaginal bleeding in Discharge Orders Other Ambulatory Orders: HCG Quant (STAT) Timeframe: [id number] Facility: [facility] - Location: Laboratory Outpatient - [facility] Ordered By: Parisa Hobson Discharge Data Discharge Physician: Elis Velásquez [facility] General Date/Time Provider Initiated Documentation: 09/27/24 17:10. HPI Narrative: 39-year-old female presents for evaluation of vaginal bleeding. Patient states that she has had some spotting for the last 3 to 4 days. Today the spotting is noted only with wiping. She has developed some cramping on the right side of her abdomen. Denies any fevers or chills. No nausea or vomiting. No urinary difficulty. She has not had any hormone level testing or ultrasound during this . She did have a miscarriage with her first at 12 weeks she does not recall if she had any vaginal spotting with her other 2 pregnancies that resulted in deliveries. Related Data Home Medications ?Medication ?Instructions ?Recorded ?Confirmed vits no.126-ferrous fum 1 tab PO DAILY 09/15/24 09/27/24 28 mg iron-folic acid 800 mcg tablet (Classic ) Allergies Allergy/AdvReac Type Severity Reaction Status Date / Time Penicillins Allergy Skin Rash Unverified 09/27/24 17:08 diphenhydramine (From AdvReac Hives Unverified 09/27/24 17:08 Benadryl) General Stated Complaint: [employer] DANNA: 3 Review of Systems Narrative: Remainder of review of systems otherwise negative except for as noted in the HPI x 10. Exam Narrative Exam Narrative: General: non-toxic, no respiratory distress, comfortable HEENT: normocephalic, atraumatic, lids and lashes normal, PERRL, EOMI, anicteric sclera, no conjunctival injection, moist oral mucosa Card: regular rate and rhythm, S1S2, no murmurs, rubs, or gallops Lungs: good air entry, clear to auscultation bilaterally. no wheezes, rales, rhonchi, or retractions Abd: soft, non-tender, non-distended, normal bowel sounds, no rebound or guarding, no peritoneal signs, no CVAT Musculoskeletal: full range of motion of arms and legs, no tenderness to palpation. no clubbing, cyanosis, or edema Neurologic: appropriate for age, strength normal Psych: alert and oriented Skin: no petechiae, no lesions, warm and dry Course Vital Signs Vital signs: Vital Signs Temperature 36.9 C 09/27/24 17:01 Pulse 77 09/27/24 17:01 Respiratory Rate 16 09/27/24 17:01 Blood Pressure 99/64 L 09/27/24 17:01 Pulse Oximetry 98 09/27/24 17:01 Temperature 36.9 C 09/27/24 17:01 Temperature Source Oral 09/27/24 17:01 Pulse 77 09/27/24 17:01 Respiratory Rate 16 09/27/24 17:01 Blood Pressure 99/64 L 09/27/24 17:01 Blood Pressure Position Sitting 09/27/24 17:01 Pulse Oximetry 98 09/27/24 17:01 Oxygen Delivery Method Room Air 09/27/24 17:01 Oxygen Flow Rate 0 09/27/24 17:01 Medical Decision Making 39-year-old female G4, P2 presents for evaluation of vaginal bleeding in early as well as right-sided cramping. Laboratory studies show H&H is stable. She is Rh+. Beta hCG is 9900. Pelvic ultrasound was obtained and concerning for possible ectopic. Case discussed with [employer] who saw patient in consultation. Patient has opted for discharge home at this time and will follow-up in the office on Saturday. She was given strict return criteria. PFSH All Active Problems (Updated 09/27/24 @ 21:00 by Elis Velásquez MD) Vaginal bleeding in (Acute) Panic attacks (Acute) Medical History Hypothyroidism In Anxiety and depression Migraine Bone fracture Eating disorder Hx anorexia Surgical History History of Family History Other Breast cancer Diabetes Thyroid disease Social History Smoking/Tobacco Use Status: Current-Occasional Tobacco Type: cigarettes Quit status: quit date established Second Hand Exposure: No Smoking risk assessment performed?: Yes Alcohol Intake: never Drug use: Never Substance use type: does not use Household members: spouse 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 Sexually active: Yes Do you think of yourself as: straight/heterosexual Current gender identity: female What is your relationship status?: living with partner Panel score (0-1 are the most socially isolated patients): 1 What type of physical activity do you participate in: regular exercise Duration: 15-30 minutes/day Frequency: 3-4 times per week Do you feel safe at home: Yes Do you feel safe in your relationship?: Yes Female Reproductive History Menstrual Age of Menarche: 15 Duration of menses: 6-7 days control method: none History History 3 Para 2 Hx # Term Pregnancies Multiple births Hx # Pregnancies Ectopic pregnancies AB induced Hx Number of Living Children AB spontaneous 1 Past Pregnancies Del. Date GA/Weeks # Preg Succ Route Wgt Sex Labor Lgth Anesthesia Location [facility] 12/21/10 No No [place] 03/23/12 42 Yes 3798.836 g Female 10/21/17 42 vaginal 3940.584 g Male regional Delivery Date: 03/23/12 Last Updated by: Nishi Horne NP PUPPs rash Delivery Date: 10/21/17 Last Updated by: Nishi Horne NP , needed thyroid meds
[2024-09-27 17:47] LABS: Abs Immature Grans 0.02 10^3/uL (0.0-0.06); HCT 38.8 % (36.0-46.0); HGB 13.0 g/dL (11.2-15.7); Immature Grans % 0.2 %; MCH 31.6 pg (27.0-33.0); MCHC 33.5 % (32.0-36.0); MCV 94 fL (80-95); MPV 9.8 fL (8.0-11.0); Platelet Count 232 10^3/uL (130-400); RBC 4.12 10^6/uL (3.93-5.22); RDW 12.9 % (11.7-14.6); RDW-SD 44.7 fL; WBC 8.38 10^3/uL (4.4-10.8)
--- NOTE | 2024-09-27 17:50 | DI.US_ITS ---
Exam(s) US OB 1ST TRIMESTER EXAM: US OB 1ST TRIMESTER CLINICAL HISTORY: vaginal bleeding, pain. TECHNIQUE: First trimester obstetrical ultrasound was performed. COMPARISON: No exams were available for comparison FINDINGS: There is an intrauterine gestational sac seen in the right-side of the endometrium which measures 5 x 4 x 4 mm. Does not contain an obvious pole and yolk sac. Endometrium is thickened up to 2 cm. There does not appear to be significant amount of fluid in the endometrial cavity. There are no uterine fibroids but there are dilated veins on both sides of the uterus Maternal ovaries: Right ovary measures 2.5 x 2.2 x 1.3 cm Left ovary measures 3.3 x 1.9 x 3.3 cm. There is a 1.9 x 1.8 x 1.6 cm ovarian cyst tension on the technologist report. However, the cysts is not measured nor identified on these images. There is no fluid in the cul-de-sac and adnexal regions. IMPRESSION:: There is an intrauterine gestational or pseudo gestational sac in the right-side of the endometrium noted which does not contain an obvious pole nor yolk sac and this may be related to a very early gestation but cannot excluded topic . There are no extraovarian adnexal masses and no free fluid in the adnexal regions and cul-de-sac. The above findings may represent an early intrauterine gestation but cannot exclude ectopic . Recommend follow-up imaging and serial serum beta hCG levels and clinical correlation. Preliminary virtual Radiology report was reviewed DATA REPOSITORY:
[2024-09-27 17:53] LABS: Glucose Negative (Negative)
[2024-09-27 17:56] LABS: C & S Indicated? No; RBC 0-2 HPF (0-2); WBC Negative HPF (0-5)
[2024-09-27 18:33] LABS: HCG Quant, Pregnancy 9905 mIU/mL (1-3)
[2024-09-27 18:43] VITALS: BP 92/60; PULSE 60; RESP 16; O2SAT 100
--- NOTE | 2024-09-27 19:39 | DI.VRAD_ITS ---
Addendum created by Hernán Canela MD on 09/27/2024 7:46:42 PM EDT: The ovarian cyst is on the left. Initial report created on 09/27/2024 7:39:19 PM EDT: PROCEDURE INFORMATION: Exam: US First Trimester, Transabdominal Exam date and time: 09/27/2024 5:55 PM Age: 39 years old Clinical indication: Pain; Other: Rlq; Gestational age or lmp: 7; ; Prior surgery; Surgery date: 6+ months; Surgery type: 12 years ago LABS AND CLINICAL REPORTS: Choriogonadotropin in serum (Serum HCG): 9905 mIU/mL Last menstrual period start date: Unknown Gestational age (Established): 7 w 0 d Estimated due date (Established): 05/17/2025 TECHNIQUE: Imaging protocol: Real-time transabdominal obstetrical ultrasound of the maternal pelvis and a first trimester , less than 14 weeks 0 days, with image documentation. COMPARISON: No relevant prior studies available. FINDINGS: GESTATION: Gestation: Positive serum beta hCG test without ultrasonic evidence of intrauterine pole present. While this may represent an early intrauterine gestation, the patient is at risk for ectopic . Recommend followup imaging, serial serum beta hCG and correlation. No evidence of definitive ectopic identified within the adnexae bilaterally. BIOMETRY: Gestational age (AUA): 6-8 weeks by gestational age last menstrual period MATERNAL: Uterus: The uterus measures 9.8 x 4.9 x 5.7 cm. There is a prominent endometrial cavity. There is a gestational sac present within the body of the uterus adjacent to the endometrium No yolk sac or pole identified. This may represent a pseudo gestational sac. Cervix: The cervix is normal. The cervix appears closed. Right ovary/adnexa: The right ovary measures 2.5 x 2.2 x 1.3 cm. Normal Doppler signal present within the right ovary. Left ovary/adnexa: The left ovary appears normal with normal Doppler signal. Intraperitoneal space: There is no definitive free fluid present. Vasculature: There are large pelvic venous collaterals present. The findings are consistent with pelvic congestion physiology. Clinical correlation as to presence of pelvic congestion syndrome recommended. Other findings: There is a 1.9 x 1.8 x 1.6 cm ovarian cyst. Laterality was not identified. The cyst is not measured or identified on the images. IMPRESSION: 1. Positive serum beta hCG test without ultrasonic evidence of intrauterine pole present. While this may represent an early intrauterine gestation, the patient is at risk for ectopic . Recommend followup imaging, serial serum beta hCG and correlation. 2. There is a prominent endometrial cavity. There is a gestational sac present within the body of the uterus adjacent to the endometrium No yolk sac or pole identified. This may represent a pseudo gestational sac. 3. There is a 1.9 x 1.8 x 1.6 cm ovarian cyst. Laterality was not identified. The cyst is not measured or identified on the images. 4. No evidence of definitive ectopic identified within the adnexae bilaterally. 5. There are large pelvic venous collaterals present. The findings are consistent with pelvic congestion physiology. Clinical correlation as to presence of pelvic congestion syndrome recommended. Dictated and Authenticated by: Hernán Canela MD. Orderin Christen Gillis MD
--- NOTE | 2024-09-27 21:00 | W.OBCONSULT ---
Date of service: 09/27/24 Time of Service: 21:01 Assessment and Plan Assessment and plan (1) Bleeding in early : Status: Acute Assessment and plan: 39 yo ( x1, x1) at 7 weeks be certain LMP (August 09?) with intermittent spotting in early ? H/O anxiety, hypothyroid ? BMI 19.1 ? Current cigarette smoker ? Sexually active in a committed, hetero relationship ? Contraception: None; desires ? Pap smear records not available versus patient due for Pap smear ? HCG: (09/27) 9905, (09/29) pending ? Rh+ - - - - - - - - - - - 09/27/2024 (Joce): Patient presents to the ED this evening for intermittent bleeding over the last few days in early ; she endorses some intermittent right-sided discomfort. Ultrasound report this evening is suggestive of an intrauterine versus pseudosac; on personal review of the imaging I am concerned for the possibility of an ectopic . I discussed my concerns in depth with the patient and we discussed management options. Patient verbalized a strong and heartfelt desire for ; we will need to be certain regarding the viability of the before pursuing intervention. She was strongly advised on the potential for rupture in the event that this is an ectopic and was instructed to have a very low threshold for returning for immediate medical evaluation if any concerns arise (example: Further bleeding, worsened pain, nausea/vomiting, fevers, or any other general concerns). Patient and significant other (Jorge A) were provided with notes to be off of work for Saturday and Saturday to facilitate low activity on Saturday and availability for appointment on Saturday; Jorge A states he will be able to take off work and be with the patient and help take care of her. Patient is noted to be Rh+. She was instructed to present to the hospital no later than 8:30 AM on Saturday for blood work and to come upstairs for a visit afterwards. Ectopic precautions reviewed. - - - - - - - - - - - History of Present Illness Narrative: 39 yo (h/o x1, x1) presents at 7 wk GA by certain LMP for evaluation of spotting in early . She is accompanied by her significant other, Jorge A. Ms. Watts called earlier in the evening concerned about some vaginal spotting that she has had over the last 3 days. She endorsed some mild, intermittent right sided discomfort but denied any other associated symptoms. She was advised to seek medical evaluation in the emergency department this evening. Upon presentation, Ms. Watts denies any further bleeding or cramping this evening; she is found to be in good spirits. She expresses a profound desire for . Review of Systems All systems reviewed & are unremarkable except as noted in HPI and below PFSH All Active Problems (Updated 09/27/24 @ 22:24 by Parisa Hobson, ) Bleeding in early (Acute) Vaginal bleeding in (Acute) Panic attacks (Acute) Medical History Hypothyroidism In Anxiety and depression Migraine Bone fracture Eating disorder Hx anorexia Surgical History History of Family History Other Breast cancer Diabetes Thyroid disease Social History Smoking/Tobacco Use Status: Current-Occasional Tobacco Type: cigarettes Quit status: quit date established Second Hand Exposure: No Smoking risk assessment performed?: Yes Alcohol Intake: never Drug use: Never Substance use type: does not use Household members: spouse current occupation: [employer] Sexually active: Yes Do you think of yourself as: straight/heterosexual Current gender identity: female What is your relationship status?: living with partner Panel score (0-1 are the most socially isolated patients): 1 What type of physical activity do you participate in: regular exercise Duration: 15-30 minutes/day Frequency: 3-4 times per week Do you feel safe at home: Yes Do you feel safe in your relationship?: Yes Female Reproductive History Menstrual Age of Menarche: 15 Duration of menses: 6-7 days control method: none History History 3 Para 2 Hx # Term Pregnancies Multiple births Hx # Pregnancies Ectopic pregnancies AB induced Hx Number of Living Children AB spontaneous 1 Past Pregnancies Del. Date GA/Weeks # Preg Succ Route Wgt Sex Labor Lgth Anesthesia Location Prov [facility] 12/21/10 [facility] 03/23/12 42 Yes 8 lb 6 oz Female 10/21/17 42 vaginal 8 lb 11 oz Male regional Delivery Date: 03/23/12 Last Updated by: Nishi Horne NP PUPPs rash Delivery Date: 10/21/17 Last Updated by: Nishi Horne NP , needed thyroid meds Exam Narrative Exam Narrative: General: Well-nourished female in no immediate distress Pulmonary: No overt respiratory distress Abdomen: Soft, nondistended, nontender Extremities: No swelling Psych: Congruent though sad; cooperative Results Last Vital Signs Temp 98.5 F 09/27/24 17:01 Pulse 60 09/27/24 18:43 Resp 16 09/27/24 18:43 BP 92/60 L 09/27/24 18:43 Pulse Ox 100 09/27/24 18:43 Labs 09/27/24 17:35 Labs: Laboratory Results - last 24 hr 09/27/24 09/27/24 17:35 17:40 WBC 8.38 RBC 4.12 Hgb 13.0 Hct 38.8 MCV 94 MCH 31.6 MCHC 33.5 RDW 12.9 Plt Count 232 MPV 9.8 Immature Gran % 0.2 Neutrophils % 53.1 Lymphocytes % 34.2 Monocytes % 8.8 Eosinophils % 3.0 Basophils % 0.7 Nucleated RBC % 0.0 Absolute Neutrophils 4.44 Absolute Lymphocytes 2.87 Absolute Monocytes 0.74 Absolute Eosinophils 0.25 Absolute Basophils 0.06 Beta HCG, Quant 9905 H Urine Color Yellow Urine Clarity Clear Urine pH 6.0 Ur Specific [place] 1.015 Urine Protein Negative Urine Ketones Negative Urine Blood Trace-intact H Urine Nitrite Negative Urine Bilirubin Negative Urine Urobilinogen 0.2 Ur Leukocyte Esterase Negative Urine RBC 0-2 Urine WBC Negative Ur Epithelial Cells Negative Urine Crystals Negative Urine Bacteria Negative Urine Casts Negative Urine Mucus Negative Ur Culture Indicated? No Urine Glucose Negative ABO/Rh O Positive Antibody Screen NEGATIVE Imaging Imaging Studies: 09/27/2024 TVUS: Report mentions a 9.8 x 4.9 x 5.7 cm uterus with 2 cm endometrial stripe as well as 5 x 4 x 4 mm gestational sac versus pseudosac in the right side of the endometrium. There is no free fluid in the pelvis. 1.9 cm left ovarian cyst.
== END 2024-09-27 21:05 | disposition home or self-care (01) ==
PROVIDERS: Emergency Provider Emergency Medicine Emergency Medical Services; PCP Physician Assistant
DX: O20.9 Hemorrhage in early pregnancy, unspecified (principal)
CPT/HCPCS: 99283 ×2; 36415; 86850; 86900; 86901; 96360; 76801; 81003; 81015; 84702; 85025

== ENCOUNTER 2024-09-29 10:57 | Outpatient (CLI) | payer MEDICAID, SELFPAY ==
[2024-09-29 10:14] LABS: HCG Quant, Pregnancy 14170 mIU/mL (1-3)
== END 2024-09-29 10:58 | disposition home or self-care (01) ==
LOC: LBO 10:57
PROVIDERS: PCP Physician Assistant; Visit Provider Obstetrics & Gynecology
DX: O20.9 Hemorrhage in early pregnancy, unspecified (principal)
CPT/HCPCS: 36415; 84702